=== PATIENT | female | born 1945 | race Caucasian/White ===

== ENCOUNTER 2020-11-20 18:36 | Emergency (ER) | payer MEDICARE, BC ==
[~2020-11-20 18:36] MED LIST: ALLEGRA30 MG PO; ZOLOFT50 MG PO
[2020-11-20 20:05] LABS: POTASSIUM 3.8 mmol/L (3.5-5.1)
[2020-11-20 20:06] LABS: BASO # 0.1 (0.02-0.10); CALCIUM 9.2 mg/dL (8.3-10.5); EOS # 0.2 (0.04-0.40); EOS % 1.6 % (1.0-5.0); HEMATOCRIT 44.7 % (37.0-47.0); HEMOGLOBIN 14.6 g/dL (12.5-16.0); LYMPH# 2.3 (1.50-4.00); MEAN CELL VOLUME 91 fl (78-100); MEAN CORPUSCULAR HEMOGLOBIN 30 pg (27-31); MEAN CORPUSCULAR HGB CONC 33 g/dL (33-37); MEAN PLATELET VOLUME 11.4 fl (7.4-10.4); MONO # 0.9 (0.20-0.80); NEU # 7.2 (1.40-6.50); PLATELET COUNT 219 K/mm3 (130-400); RED BLOOD COUNT 4.94 M/mm3 (4.10-5.30); RED CELL DISTRIBUTION WIDTH 13.1 % (11.5-14.5); WHITE BLOOD COUNT 10.7 K/mm3 (4.8-10.8)
[2020-11-20 20:09] LABS: TOTAL BILIRUBIN 0.3 mg/dL (0.2-1.2)
[2020-11-20] MEDS ORDERED: ZOVIRAX400 MG PO (20:09)
[2020-11-20] MEDS ORDERED: FEXOFENADINE HY60 MG PO (20:09)
[2020-11-20] MEDS ORDERED: CLARITIN 1010 MG/TAB PO (20:10)
[2020-11-20] MEDS ORDERED: NORVASC 10MG10 MG PO (20:10)
[2020-11-20] MEDS ORDERED: ASPIRIN E.C. 8181 MG PO (20:10)
[2020-11-20] MEDS ORDERED: FAMCICLOVIR500 MG PO (20:11)
[2020-11-20] MEDS ORDERED: SINGULAIR PO (20:12)
[2020-11-20] MEDS ORDERED: OXCARBAZEPINE300 M1 PO (20:12)
[2020-11-20] MEDS ORDERED: PRILOSEC OTC20 MG PO (20:12)
[2020-11-20] MEDS ORDERED: PROAIR HFA0.09 MG/AC IH (20:13)
[2020-11-20] MEDS ORDERED: ZOLOFT 50MG50 MG PO (20:13)
[2020-11-20] MEDS ORDERED: POTASSIUM99 M3 PO (20:13)
[2020-11-20 21:24] VITALS: BP 163/88
== END 2020-11-20 21:24 | disposition home or self-care (01) ==
LOC: ED 18:36
PROVIDERS: Nurse Practitioner
DX: G50.0 Trigeminal neuralgia (principal); I10 Essential (primary) hypertension; K21.9 Gastro-esophageal reflux disease without esophagitis; F32.9 Major depressive disorder, single episode, unspecified; Z79.82 Long term (current) use of aspirin